=== PATIENT | female | born 1965 | race African-American/Black ===

== ENCOUNTER 2020-05-05 21:09 | Emergency (ER) | payer SELFPAY ==
[~2020-05-05] VITALS: Ht 175.3 cm; Wt 97.7 kg
[2020-05-05 21:11] VITALS: BP 117/102; TEMP 98
[2020-05-05] MEDS ORDERED: SEROQUEL50 MG PO (21:53)
[2020-05-05] MEDS ORDERED: LANTUS100 U/ML SQ (21:54)
[2020-05-05 23:12] VITALS: PULSE 76
== END 2020-05-05 23:12 | disposition home or self-care (01) ==
LOC: COL.ER 21:09
DX: S06.0X0A Concussion without loss of consciousness, initial encounter (principal); S13.4XXA Sprain of ligaments of cervical spine, initial encounter; S80.02XA Contusion of left knee, initial encounter; R40.2410 Glasgow coma scale score 13-15, unspecified time; E11.9 Type 2 diabetes mellitus without complications; F17.210 Nicotine dependence, cigarettes, uncomplicated; Z79.4 Long term (current) use of insulin; Z88.6 Allergy status to analgesic agent; V43.62XA Car passenger injured in collision with other type car in traffic accident, initial encounter

== ENCOUNTER 2021-04-02 16:01 | Emergency (ER) | payer MEDICARE, MEDICAID ==
[~2021-04-02] VITALS: Ht 177.8 cm; Wt 90.9 kg
[~2021-04-02 16:01] MED LIST: LANTUS100 U/ML SQ; SEROQUEL50 MG PO
[2021-04-02 16:04] VITALS: TEMP 98.1
[2021-04-02] MEDS ORDERED: CRUTCHES MC (16:29)
[2021-04-02 17:00] VITALS: BP 130/67; PULSE 80
== END 2021-04-02 17:10 | disposition home or self-care (01) ==
LOC: COL.ER 16:01
DX: M25.562 Pain in left knee (principal); Z98.890 Other specified postprocedural states; W10.8XXA Fall (on) (from) other stairs and steps, initial encounter
CPT/HCPCS: 31289; L1830; L1846